=== PATIENT | female | born 1950 | race Asian ===

== ENCOUNTER → 2020-03-20 08:55 | Outpatient (CLI) | payer MEDICARE, OTHER, SELFPAY ==
[2020-03-20 23:37] LABS: COVID19 Sendout Not Detected (Not Detect)
== END ==
PROVIDERS: Family Provider Family Medicine; PCP Family Medicine; Visit Provider Physician Assistant
DX: Z01.812 Encounter for preprocedural laboratory examination (principal)
CPT/HCPCS: 87635

== ENCOUNTER 2020-03-23 11:03 | Day surgery (SDC) | payer MEDICARE, OTHER, SELFPAY ==
[2020-03-23] VITALS (7 sets, daily range): BP systolic 100–135; BP diastolic 64–82; PULSE 72–80; RESP 16–18; TEMP 36.4–36.8; O2SAT 95–99; BMI 28.3
--- NOTE | 2020-03-23 | PATH_ITS ---
[facility] Accession Number: [id number] . 01 Material submitted: . colon - SIGMOID COLON POLYP X2 . 02 Diagnosis: Sigmoid Colon, Polyps x2, Biopsies: Hyperplastic polyps. [facility] 03/27/2020 1148 Local . 02 Electronically signed: . Shilpa Yoo MD, Pathologist NPI- [id number] . 01 Gross description: . SIGMOID COLON POLYP X2: Received in formalin are 2 fragment(s) of carranza, soft tissue measuring 0.3 x 0.2 x 0.2 cm to 0.3 x 0.1 x 0.2 cm submitted entirely in 1 cassette(s) /QBJ 03/24/2020 0431 Local . 02 Pathologist provided ICD-10: Z12.11 . 02 CPT . 437714 Performed at: 01 [facility] [address] [id number] MD Roosevelt Meza MD Phone: [phone] Performed at: 02 [facility] [address] [address] [employer] [place] [place], [place] [id number] MD Shilpa Yoo MD Phone: [phone]
[2020-03-23] MEDS: LACTATED RINGERS 1,000 ML 200 ML IV (11:24)
--- NOTE | 2020-03-23 12:25 | PM.HP.1 ---
History of Present Illness History of Present Illness Date Patient Seen: 03/23/20 Time Patient Seen: 12:25 Chief complaint: [id number] Narrative: The patient presents for colorectal sreening. The previous colonoscopy 10 years ago that was normal.. No personal or family history of colon cancer. On further history denies any recent gastrointestinal symptoms. No nausea, vomiting, abdominal pain, loss of appetite, unexplained weight loss, change in bowel habits, diarrhea, constipation, melena, hematochezia, or bright red blood per rectum. Patient History Medical History (Updated 03/23/20 @ 12:26 by Steve Burton MD) HTN (hypertension) (Acute) Hyperlipidemia (Acute) Surgical History (Updated 03/23/20 @ 12:26 by Steve Burton MD) History of appendectomy (Acute) Hx of cholecystectomy (Acute) Family & Social History Social History: household members spouse Tobacco & Substance use: Smoking Status Never smoker alcohol intake never Substance Use Type does not use Meds Home Medications and Allergies Home Medications Medication Instructions Recorded Confirmed Type atenolol 50 mg PO DAILY 03/23/20 03/23/20 History Allergies Allergy/AdvReac Type Severity Reaction Status Date / Time No Known Drug Allergies Allergy Verified 03/23/20 10:52 Review of Systems Review of Systems Narrative: A 10 point review of systems is negative except as noted in the HPI Exam Vital Signs (past 8 hours): - 03/23/20 11:27 Temperature 98 F Pulse Rate 77 Respiratory Rate 16 Blood Pressure 135/82 Pulse Oximetry 98 Oxygen Delivery Method Room Air Narrative Exam Narrative: General-no acute distress, well nourished HEENT-moist mucous membranes, no scleral icterus Neck-supple, no lymphadenopathy Chest- non labored respirations, clear to auscultation bilaterally Cardiac-regular rate no peripheral edema Abdomen-soft, nontender, non distended Extremities-warm, well perfused Neurological-alert and oriented, no focal deficits Assessment & Plan Assessment and plan (1) Screening for colon cancer: Status: Acute Assessment & Plan narrative: The patient requires colorectal screening and colonoscopy is recommended. Technical details were discussed. Risks, benefits, alternatives explained. Risks including but not limited to myocardial infarction, aspiration, bleeding, pain, missed lesion, incomplete examination, need for further radiographic studies, colonic perforation, and need for major abdominal surgery were discussed. All questions were answered to their satisfaction, and they are in agreement with this plan. COVID-19 COVID-19 status: Negative
[2020-03-23] MEDS: fentaNYL 250 MCG/5 ML INJ IV (12:45)
[2020-03-23] MEDS: MIDAZOLAM 5 MG/5 ML VIAL IV (12:46)
--- NOTE | 2020-03-23 12:46 | PM.OP.ENDO ---
Operative Date/Time/Diagnoses Date of procedure: 03/23/20 Time of procedure: 12:46 Pre-op diagnosis: Screening colonoscopy Post-op diagnosis: same Procedure & Clinicians Study performed: Colonoscopy Same procedure as scheduled: Yes Indications: 69-year-old woman previously normal colonoscopy 10 years ago presents for routine screening. Surgeon: Steve Burton Procedure Notes SCOAP/Timeout: Performed Procedure in detail: Patient placed in left lateral decubitus position. Time out was performed. Procedural sedation was administered with Versed and Fentanyl. A rectal exam demonstrated no external hemorrhoids no internal masses. Colonoscopy scope was placed into the rectum and advanced through the colon to the cecum. The ileocecal valve was identified. The scope was then slowly withdrawn examining colon thoroughly in all directions. The colonoscopy was notable for the following 1. Sigmoid diverticulosis 2. Sigmoid hyperplastic appearing polyps x2 both less than 1 cm removed with biopsy forceps hemostasis observed 3. Grade 1 internal hemorrhoids Scope withdrawal time: 6 Sedation minutes: 30 Findings: internal hemorrhoids and polyp (Sigmoid polyps) Specimen(s): other Complications: other (Sigmoid polyps) Impression: Hyperplastic polyps Post-procedure Recommendations: Colonscopy in 10 years Disposition: same day surgery
--- NOTE | 2020-03-23 13:17 | SUR.PHASEI ---
Report from Flako Gentile, stable PACU stay.
--- NOTE | 2020-03-23 13:49 | SUR.PHASEI ---
Stable PACU stay, report to John. BP high, at baseline when admitted, pt states BP has been high lately at home.
== END 2020-03-23 13:30 | disposition home or self-care (01) ==
PROVIDERS: Family Provider Family Medicine; PCP Family Medicine; Referring Provider Family Medicine; Visit Provider Surgery
PROC: 0DJD8ZZ Inspection of Lower Intestinal Tract, Via Natural or Artificial Opening Endoscopic (ICD-10-PCS; CPT 45378; principal; 2020-03-23 12:15)
DX: Z12.11 Encounter for screening for malignant neoplasm of colon (principal); I10 Essential (primary) hypertension; E78.5 Hyperlipidemia, unspecified; K57.30 Diverticulosis of large intestine without perforation or abscess without bleeding; K64.0 First degree hemorrhoids; D12.5 Benign neoplasm of sigmoid colon
CPT/HCPCS: 45380; 99152; 99153; J2250; J3010